=== PATIENT | female | born 1970 | race Caucasian/White ===

== ENCOUNTER 2017-10-27 21:02 | Emergency (ER) | payer OTHER ==
[~2017-10-27] VITALS: Ht 162.6 cm; Wt 76.2 kg
[2017-10-27 21:08] VITALS: BP 132/85
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
[2017-10-27] MEDS ORDERED: BACI28.34 TP (21:23)
[2017-10-27] MEDS ORDERED: DOXY100T9 PO (21:23)
[2017-10-27] MEDS ORDERED: DOXYCYCLINE HYCLATE 100 MG TABLET PO ONE (22:00)
[2017-10-27] MEDS ORDERED: BACITRACIN TOPICAL OINT 28GM TUBE. TP ONE (22:00)
== END 2017-10-27 21:49 | disposition home or self-care (01) ==
LOC: ER 21:02
DX: S80.862A Insect bite (nonvenomous), left lower leg, initial encounter (principal); L03.116 Cellulitis of left lower limb; Z88.2 Allergy status to sulfonamides; Z88.1 Allergy status to other antibiotic agents; W57.XXXA Bitten or stung by nonvenomous insect and other nonvenomous arthropods, initial encounter; Y93.55 Activity, bike riding; Y99.8 Other external cause status; Y92.89 Other specified places as the place of occurrence of the external cause
CPT/HCPCS: 99283

== ENCOUNTER 2018-02-19 18:58 | Emergency (ER) | payer OTHER ==
[~2018-02-19] VITALS: Ht 162.6 cm; Wt 76.2 kg
[~2018-02-19 18:58] MED LIST: BACI28.34 TP; DOXY100T9 PO
--- NOTE | 2018-02-19 19:22 | ED.ADGEN ---
Past History Past Medical History: No Pertinent History Past Surgical History: Other Alcohol Use: Occasionally Drug Use: None Adult General HPI HPI Patient is a 47 year old female who presents with burning dysuria that started this morning. Also admits to associated suprapubic nonradiating cramping with urination. Admits to frequency and dysuria. States that she has had a history of urinary tract infection similar to this in the past. Denies any flank pain, fevers, vomiting or nausea. Review of Systems Review of Systems Constitutional: Denies fever or chills Eyes: Denies change in visual acuity, redness, or eye pain HENT: Denies nasal congestion or sore throat Respiratory: Denies cough or shortness of breath GI: Denies abdominal pain, nausea, vomiting, bloody stools or diarrhea : Denies dysuria or hematuria Musculoskeletal: Denies back pain or joint pain Integument: Denies rash or skin lesions Neurologic: Denies headache, focal weakness or sensory changes Endocrine: Denies polyuria or polydipsia All other systems were reviewed and found to be within normal limits, except as documented in this note. Family History Family History no significant family history Allergies Allergies Allergies Coded Allergies Type Severity Reaction Last Updated Verified Sulfa (Sulfonamide Antibiotics) Allergy Intermediate 10/27/17 Yes ciprofloxacin Allergy Unknown 10/27/17 Yes Physical Exam Physical Exam GENERAL: Awake, alert, well appearing, nontoxic HEAD/NECK/EYES: Normocephalic, Neck supple, PERRL ENT Airway patent, mucous membranes moist RESP: Nontachypneic, no respiratory distress, normal breath sounds bilaterally CV: Regular rhythm, normal perfusion ABD/GI: Soft, non-tender, no guarding, no rebound, no CVA tenderness BACK: Inspection NL EXT: Neurovascularly intact, no deformities SKIN: Warm, dry NEURO: Oriented X3, normal speech, no motor deficits, no sensory deficits, CN II - XII intact PSYCH: Cooperative, appropriate affect Current Patient Data Vital Signs Vital Signs Date Time Temp Pulse Resp B/P (MAP) Pulse Ox O2 Delivery O2 Flow Rate FiO2 02/19/18 19:08 98.4 63 20 99 Room Air EKG EKG [] Radiology/Procedures Radiology/Procedures [] Impressions: Acute lower urinary tract infection. Course & Med Decision Making Course & Med Decision Making Pertinent Labs and Imaging studies reviewed. (See chart for details) Differential diagnosis includes but not limited to: Lower urinary tract infection, ascending urinary tract infection, versus cystitis, serious bacterial illness, ESBL Final Impression Final Impression Acute lower urinary tract infection[] Dragon Disclaimer Dragon Disclaimer This electronic medical record was generated, in whole or in part, using a voice recognition dictation system. REINA HARE DO Feb 19, 2018 19:22
[2018-02-19] MEDS ORDERED: NITROFURANTOIN MONOHYD/M-CRYST 100 MG CAPSULE. PO ONE (19:30)
[2018-02-19] MEDS ORDERED: PHENAZOPYRIDINE 100 MG TABLET. PO ONE (19:30)
[2018-02-19 19:37] LABS: BILIRUBIN,URINE NEG (NEG); CLARITY,URINE CLEAR; COLOR,URINE STRAW; GLUCOSE,URINE NEG (NEG); NITRITE,URINE NEG (NEG); RBC,URINE 0 /HPF (0-2); UROBILINOGEN,URINE 0.2 mg/dL (0.2 mg/dL)
[2018-02-19] MEDS ORDERED: NITR100C62 PO (19:37)
[2018-02-19 19:38] LABS: BACTERIA,URINE 0 /HPF (0-FEW); SQUAMOUS EPITHELIAL CELL,UR OCC /LPF
[2018-02-19 19:48] VITALS: BP 134/78
== END 2018-02-19 19:50 | disposition home or self-care (01) ==
LOC: ER 18:58
DX: N39.0 Urinary tract infection, site not specified (principal); Z88.2 Allergy status to sulfonamides; Z88.1 Allergy status to other antibiotic agents
CPT/HCPCS: 81001; 81025; 87086; 99284

== ENCOUNTER 2019-01-12 20:49 | Emergency (ER) | payer OTHER ==
[~2019-01-12] VITALS: Ht 160 cm; Wt 77.1 kg
[~2019-01-12 20:49] MED LIST changes: +NITR100C62 PO
[2019-01-12] MEDS ORDERED: DICL50TA4 PO (21:54)
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
[2019-01-12 22:00] VITALS: BP 118/66
--- NOTE | 2019-01-12 23:43 | RAD ---
Exam: Right foot 3 views right ankle 3 views INDICATION: Right ankle injury TECHNIQUE: Frontal, lateral and oblique views of the right ankle and foot Comparisons: None FINDINGS: Ankle: Small anterior tibiotalar fusion. Bone mineralization and development are normal. Cortical irregularity along the medial aspect of the distal fibula. Joint spaces are well-maintained. Foot: Bone mineralization and development are normal. No acute or healed fractures. Soft tissues are unremarkable. Joint spaces are well-maintained. IMPRESSION: 1. Small anterior tibiotalar effusion. Mild cortical irregularity along the medial surface of the distal fibular metaphysis which may relate to nondisplaced fracture. 2. No acute osseous abnormality of the right foot. Electronically signed by: Fidel Juares MD (01/12/2019 11:40 PM) [facility]
== END 2019-01-12 22:03 | disposition home or self-care (01) ==
LOC: ER 20:49
DX: S93.491A Sprain of other ligament of right ankle, initial encounter (principal); Z88.2 Allergy status to sulfonamides; Z88.1 Allergy status to other antibiotic agents; X50.9XXA Other and unspecified overexertion or strenuous movements or postures, initial encounter; Y93.55 Activity, bike riding; Y92.89 Other specified places as the place of occurrence of the external cause; Y99.8 Other external cause status
CPT/HCPCS: 29515; 73610; 73630; 99284

== ENCOUNTER 2020-12-12 22:29 | Emergency (ER) | payer OTHER ==
[~2020-12-12 22:29] MED LIST changes: +DICL50TA4 PO; +DOXY-96 PO; -DOXY100T9 PO
[2020-12-12] MEDS ORDERED: TETRACAINE 0.5% OPHTH SOLUTION 4ML BOTTLE. OD ONE (23:30)
[2020-12-12] MEDS ORDERED: FLUORESCEIN 1MG EYE STRIP. OD ONE (23:30)
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
== END 2020-12-12 23:50 | disposition home or self-care (01) ==
LOC: ER 22:29
DX: T15.91XA Foreign body on external eye, part unspecified, right eye, initial encounter (principal); E03.9 Hypothyroidism, unspecified; Z88.2 Allergy status to sulfonamides; Z88.1 Allergy status to other antibiotic agents; X58.XXXA Exposure to other specified factors, initial encounter; Y93.55 Activity, bike riding; Y92.89 Other specified places as the place of occurrence of the external cause; Y99.8 Other external cause status
CPT/HCPCS: 65205; 99283; 99284

== ENCOUNTER 2021-05-28 13:28 | Emergency (ER) | payer OTHER ==
[~2021-05-28] VITALS: Ht 162.6 cm; Wt 88.0 kg
--- NOTE | 2021-05-28 14:01 | RAD ---
Three views right shoulder History: pain Internally and externally rotated AP of shoulder obtained, as well as "Y" view. The glenohumeral relationship is normal. The visualized osseous structures appear normal. Impression: No acute findings. end impression Electronically signed by: Kermit Julio III, MD (05/28/2021 1:58 PM) [facility]
[2021-05-28 14:10] VITALS: BP 148/102
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
[2021-05-28] MEDS ORDERED: IBUP600T16 PO (15:57)
[2021-05-28] MEDS ORDERED: IBUPROFEN 600 MG TABLET. PO ONE (16:00)
== END 2021-05-28 16:10 | disposition home or self-care (01) ==
LOC: ER 13:28
DX: M25.511 Pain in right shoulder (principal); E03.9 Hypothyroidism, unspecified; Z88.2 Allergy status to sulfonamides; Z88.1 Allergy status to other antibiotic agents
CPT/HCPCS: 73030; 99283